=== PATIENT | female | born 1940 | race American Indian/Alaskan Native ===

== ENCOUNTER 2017-12-04 05:50 | Day surgery (SDC) | payer OTHER ==
[~2017-12-04 05:50] MED LIST: AVAPRO150 MG PO; NEURONTIN300 MG PO
== END 2017-12-04 12:00 | disposition home or self-care (01) ==
LOC: CIR.AMB 05:50
DX: M19.031 Primary osteoarthritis, right wrist (principal)

== ENCOUNTER 2019-01-21 06:31 | Day surgery (SDC) | payer OTHER ==
[~2019-01-21 06:31] MED LIST changes: +CARDIZEM CD120 MG; +CYMBALTA20 MG PO; +HYDROCHLOROTH12.5 M1 PO; +LIPITOR20 MG PO; +SINGULAIR10 MG PO; +SYNTHROID175 MCG PO; +ZANTAC150 MG PO
== END 2019-01-21 16:10 | disposition home or self-care (01) ==
LOC: CIR.AMB 06:31
DX: M19.042 Primary osteoarthritis, left hand (principal)

== ENCOUNTER 2019-04-15 07:30 | Day surgery (SDC) | payer OTHER ==
[~2019-04-15 07:30] MED LIST changes: +ALBUTEROL; +AVAPRO300 MG PO; +GABAPENTI PO; +PROAIR; +SEROQUEL50 MG PO; +[UNRECOGNIZED DRUG - OTHER]
== END 2019-04-15 18:20 | disposition home or self-care (01) ==
LOC: CIR.AMB 07:30
DX: M19.041 Primary osteoarthritis, right hand (principal)
CPT/HCPCS: 26536; C1776

== ENCOUNTER 2020-07-09 05:30 | Day surgery (SDC) | payer OTHER ==
[~2020-07-09 05:30] MED LIST changes: +SYNTHROID100 MCG; +SYNTHROID112 MCG PO
== END 2020-07-09 10:05 | disposition home or self-care (01) ==
LOC: CIR.AMB 05:30
PROVIDERS: ATTEND Anesthesiology Pain Medicine
DX: M51.36 Other intervertebral disc degeneration, lumbar region (principal); M43.16 Spondylolisthesis, lumbar region; Z20.828 Contact with and (suspected) exposure to other viral communicable diseases

== ENCOUNTER 2020-07-12 07:45 | Inpatient (IN) | payer OTHER ==
[~2020-07-12] VITALS: Ht 152.4 cm; Wt 64.9 kg
[2020-07-19] MEDS ORDERED: PROAIR HFA8.5 GM (07:40)
[2020-07-19] MEDS ORDERED: OMEPRAZOLE20 MG (07:41)
[2020-07-19] MEDS ORDERED: HYDROCHLOROTH12.5 MG (07:41)
[2020-07-19] MEDS ORDERED: GABAPENTIN800 M1 (07:42)
[2020-07-19] MEDS ORDERED: SYMBICORT 16010.2 GM (07:43)
[2020-07-22] MEDS ORDERED: TRAMADOL HCL50 MG PO (07:51)
[2020-07-22] MEDS ORDERED: XARELTO10 MG PO (07:51)
[2020-07-22] MEDS ORDERED: INTEGRA PLUS C1 EACH PO (07:51)
== END 2020-07-22 17:40 | DRG 470 ==
LOC: SURH 07-19 05:46 → O/R 07-19 05:46 → SURH 07-19 07:45
PROVIDERS: ADMIT Orthopaedic Surgery Sports Medicine; ATTEND Orthopaedic Surgery Sports Medicine
PROC: 0SRD0J9 Replacement of Left Knee Joint with Synthetic Substitute, Cemented, Open Approach (ICD-10-PCS; principal; 2020-07-19 11:00)
DX: M17.12 Unilateral primary osteoarthritis, left knee (principal)

== ENCOUNTER 2021-12-23 10:00 | Inpatient (IN) | payer OTHER ==
[~2021-12-23] VITALS: Ht 152.4 cm; Wt 46.7 kg
[~2021-12-23 10:00] MED LIST changes: +GABAPENTIN800 M1; +HYDROCHLOROTH12.5 MG; +INTEGRA PLUS C1 EACH PO; +OMEPRAZOLE20 MG; +PROAIR HFA8.5 GM; +SYMBICORT 16010.2 GM; +TRAMADOL HCL50 MG PO; +XARELTO10 MG PO
[2022-01-03] MEDS ORDERED: RAYOS5 MG (08:05)
[2022-01-04] MEDS ORDERED: INTEGRA PLUS C1 EACH PO (07:49)
[2022-01-04] MEDS ORDERED: BACTRIM DS TAB1 EACH PO (07:49)
[2022-01-04] MEDS ORDERED: ULTRACET PO (07:49)
[2022-01-04] MEDS ORDERED: ELIQUIS2.5 MG PO (07:49)
[2022-01-05] MEDS ORDERED: ULTRACET PO ×2 (08:28)
== END 2022-01-05 15:30 | DRG 470 ==
LOC: SURG 01-02 08:45 → SURH 01-02 12:37 → ICU-2 01-02 12:37 → SURH 01-02 13:17 → SURG 01-02 14:30 → SURH 01-05 15:30
PROVIDERS: ADMIT Orthopaedic Surgery Sports Medicine; ATTEND Orthopaedic Surgery Sports Medicine
PROC: 0SRC0J9 Replacement of Right Knee Joint with Synthetic Substitute, Cemented, Open Approach (ICD-10-PCS; principal; 2022-01-02 14:30)
DX: M17.11 Unilateral primary osteoarthritis, right knee (principal); E03.8 Other specified hypothyroidism; I12.9 Hypertensive chronic kidney disease with stage 1 through stage 4 chronic kidney disease, or unspecified chronic kidney disease; N18.30 Chronic kidney disease, stage 3 unspecified; Z20.822 Contact with and (suspected) exposure to COVID-19; M79.7 Fibromyalgia; J44.9 Chronic obstructive pulmonary disease, unspecified